=== PATIENT | female | born 1955 | race Caucasian/White ===

== ENCOUNTER 2018-12-27 08:02 | Day surgery (SDC) | payer BC ==
[2018-12-23 10:43] VITALS: BMI 29.2
[~2018-12-27 08:02] MED LIST: LACTATED RINGERS 1,000 ML IV SCH
[2018-12-27 08:28] VITALS: RESP 16; TEMP 98.2
[2018-12-27] MEDS ORDERED: LIDOCAINE 1% 20 ML VIAL (10MG/ML) FOR IV START INTRADERMA ONE (08:43)
[2018-12-27] MEDS ORDERED: PROPOFOL 10 MG/ML 20 ML VIAL IV ONE (09:38)
--- NOTE | 2018-12-27 10:01 | P.PCN ---
Date of Procedure: 12/27/18 Procedure(s) Performed: Procedure: Total colonoscopy. Preoperative diagnosis: Screening for neoplasia. Postoperative diagnosis: Exam within normal limits. Preparation: HalfLytely prep. Sedation: Was provided by anesthesia. Brief clinical history: The patient is a 63-year-old female who is scheduled for this evaluation for screening for neoplasia age being her risk factor. Her mother had polyps but there is no family history of colon cancer. She has no abdominal complaints, bleeding or anemia. This would be her first colonoscopy. Procedure: With the patient on her left lateral decubitus position and after informed consent and adequate sedation, the perianal area was inspected and it did not show any fissures or fistulas. There were no masses felt on digital rectal examination. The Olympus CFH 190L video colonoscope was then inserted in the rectum in the usual fashion and advanced to the cecum. The mucosa appeared healthy. No polyps or tumors were seen or any obvious diverticular disease or other pathology. I retroflexed the endoscope in the rectum before the endoscope was withdrawn. The patient tolerated the procedure well. Plan: The patient was reassured. She will follow-up with you as planned and I recommended repeat exam in 10 years.
[2018-12-27 10:16] VITALS: BP 127/66; PULSE 77
== END 2018-12-27 10:37 | disposition home or self-care (01) ==
LOC: ORWHC2ENDO 08:02
DX: Z12.11 Encounter for screening for malignant neoplasm of colon (principal); Z83.71 Family history of colonic polyps; I25.10 Atherosclerotic heart disease of native coronary artery without angina pectoris; I10 Essential (primary) hypertension; E78.5 Hyperlipidemia, unspecified; K21.9 Gastro-esophageal reflux disease without esophagitis; Z98.61 Coronary angioplasty status; Z79.899 Other long term (current) drug therapy; Z88.0 Allergy status to penicillin
CPT/HCPCS: J2704; G0121

== ENCOUNTER → 2019-02-14 | Outpatient (CLI) | payer BC ==
--- NOTE | 2019-02-15 11:56 | MM ---
Reason for exam: screening (asymptomatic). Last mammogram was performed 1 year and 1 month ago. History: Patient is postmenopausal. Family history of breast cancer in mother at age 70. Took hormonal contraceptives for 5 years. Took estrogen for 4 years. Physical Findings: A clinical breast exam by your physician is recommended on an annual basis and results should be correlated with mammographic findings. MG 3D Screening Mammo W/Cad Bilateral CC and MLO view(s) were taken. Prior study comparison: January 24, 2018, mammogram, performed at [facility]. July 28, 2016, mammogram, performed at [facility]. The breast tissue is heterogeneously dense. This may lower the sensitivity of mammography. There are benign appearing round dystrophic calcifications bilaterally. There is no discrete abnormality. ASSESSMENT: Benign, BI-RAD 2 RECOMMENDATION: Routine screening mammogram of both breasts in 1 year.
== END ==
LOC: RADMAMWWP 09:20
PROVIDERS: ATTEND Internal Medicine
DX: Z12.31 Encounter for screening mammogram for malignant neoplasm of breast (principal); Z80.3 Family history of malignant neoplasm of breast
CPT/HCPCS: 77063; 77067

== ENCOUNTER 2021-08-26 12:41 | Emergency (ER) | payer BC, MEDICARE ==
--- NOTE | 2021-08-26 14:29 | XR ---
EXAMINATION TYPE: XR chest 2V DATE OF EXAM: 08/26/2021 COMPARISON: NONE HISTORY: Cough, shortness of breath and chest congestion TECHNIQUE: Frontal and lateral views of the chest are obtained. FINDINGS: Patchy bilateral airspace disease is present peripherally at the lung bases. No evident pn eumothorax or pleural effusion. Cardiac mediastinal silhouette is within normal limits. There are ove rlying artifacts. Aorta is dense. Prominent lung volume could be indicative of underlying COPD. There is a spinal curvature. Arthropathy noted within the shoulders. IMPRESSION: Correlate for pneumonia. Consider covid infection. Follow-up is recommended. Additional findings above.
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
[2021-08-26] MEDS ORDERED: ACETAMINOPHEN TAB 500 MG TAB PO STA (16:00)
[2021-08-26] MEDS ORDERED: IBUPROFEN 400 MG TAB PO STA (16:00)
[2021-08-26 16:09] VITALS: BP 104/61; PULSE 101; RESP 20; TEMP 102.6
== END 2021-08-26 16:09 | disposition home or self-care (01) ==
LOC: EC 12:41
DX: U07.1 COVID-19 (principal); I10 Essential (primary) hypertension; Z88.0 Allergy status to penicillin; Z79.899 Other long term (current) drug therapy
CPT/HCPCS: 71046; 87635; 99284

== ENCOUNTER → 2022-10-01 | Outpatient (CLI) | payer MEDICARE ==
--- NOTE | 2022-10-01 14:25 | MM ---
Reason for Exam: Clinical finding. Last mammogram was performed 1 year(s) and 1 month(s) ago. Indicated Problems: Skin changes to breast of the left side. Patient History: Menarche at age 10. First Full-Term at age 23. Postmenopausal. Patient used Estrogen for 4 years. Patient used Hormonal Contraceptives for 5 years. Mother had breast cancer, age 70. Risk Values: Kaila 5 year model risk: 3.6%. NCI Lifetime model risk: 11.3%. Prior Study Comparison: 07/28/2016 Screening Mammogram, [facility]. 01/24/2018 Screening Mammogram, [facility]. 02/14/2019 Bilateral Screening Mammogram, [facility]. 09/16/2021 Bilateral MG 3D screening mammo w/cad, [facility]. Tissue Density: The breast tissue is heterogeneously dense. This may lower the sensitivity of mammography. Findings: Analyzed By CAD. Pattern appears stable. There is greater parenchymal tissue on the right compared to the left. This is unchanged. No abnormality of the right periareolar region is evident on the current examination. No suspicious spiculated or lobular masses, cluster microcalcifications, architectural distortion, or other secondary signs of malignancy are radiographically apparent. Benign calcifications are present bilaterally. Overall Assessment: Benign, BI-RAD 2 Management: Screening Mammogram of both breasts in 1 year. A clinical breast exam by your physician is recommended on an annual basis and results should be correlated with mammographic findings. This exam should not preclude additional follow-up of suspicious palpable abnormalities. Results were given to the patient verbally at the time of exam. Electronically signed and approved by: Timothy Starkey D.O. Radiologis
== END | disposition home or self-care (01) ==
LOC: RADMAMWWP 13:37
PROVIDERS: ATTEND Family Medicine
DX: N63.10 Unspecified lump in the right breast, unspecified quadrant (principal); N63.20 Unspecified lump in the left breast, unspecified quadrant; Z78.0 Asymptomatic menopausal state; Z80.3 Family history of malignant neoplasm of breast
CPT/HCPCS: 77066; G0279; 77062

== ENCOUNTER → 2023-10-07 | Outpatient (CLI) | payer MEDICARE ==
--- NOTE | 2023-10-13 12:33 | MM ---
Reason for Exam: Screening (asymptomatic). Last screening mammogram was performed 12 month(s) ago. Patient History: Menarche at age 10. First Full-Term at age 23. Postmenopausal. Patient used Estrogen for 4 years. Patient used Hormonal Contraceptives for 5 years. Mother had breast cancer, age 70. Risk Values: Kaila 5 year model risk: 3.6%. NCI Lifetime model risk: 10.9%. Prior Study Comparison: 01/24/2018 Screening Mammogram, [facility]. 02/14/2019 Bilateral Screening Mammogram, [facility]. 09/16/2021 Bilateral MG 3D screening mammo w/cad, [facility]. 10/01/2022 Bilateral MG 3D diag mammo w/cad [facility], [facility]. Tissue Density: There are scattered fibroglandular densities. Findings: Analyzed By CAD. There is no suspicious group of microcalcifications or new suspicious mass. Benign-appearing calcifications bilaterally. Overall Assessment: Benign, BI-RAD 2 Management: Screening Mammogram of both breasts in [address] [facility] will attempt to contact patient to return for supplemental views and ultrasound if indicated. Patient should continue monthly self-breast exams. A clinical breast exam by your physician is recommended on an annual basis. This exam should not preclude additional follow-up of suspicious palpable abnormalities. Note on Kaila scores and lifetime risk: 1. A Kaila score greater than 3% is considered moderate risk. If this is the case, consider specialist referral to assess eligibility for a risk reducing agent. 2. If overall lifetime risk for the development of breast cancer is 20% or higher, the patient may qualify for future screening with alternating mammogram and breast MRI. Electronically signed and approved by: Dwight Lewis DO
== END | disposition home or self-care (01) ==
LOC: RADMAMWWP 08:05
PROVIDERS: ATTEND Family Medicine
DX: Z12.31 Encounter for screening mammogram for malignant neoplasm of breast (principal); Z80.3 Family history of malignant neoplasm of breast; Z78.0 Asymptomatic menopausal state
CPT/HCPCS: 77063; 77067

== ENCOUNTER → 2024-10-12 | Outpatient (CLI) | payer MEDICARE ==
--- NOTE | 2024-10-16 17:26 | MM ---
Reason for Exam: Screening (asymptomatic). Last screening mammogram was performed 12 month(s) ago. Patient History: Menarche at age 10. First Full-Term at age 23. Postmenopausal. Patient used Estrogen for 4 years. Patient used Hormonal Contraceptives for 5 years. Mother had breast cancer, age 70. Risk Values: Kaila 5 year model risk: 3.6%. NCI Lifetime model risk: 10.4%. Prior Study Comparison: 09/16/2021 Bilateral MG 3D screening mammo w/cad, [facility]. 10/01/2022 Bilateral MG 3D diag mammo w/cad [facility], [facility]. 10/07/2023 Bilateral MG 3D screening mammo w/cad, [facility]. Tissue Density: The breasts are heterogeneously dense, which may obscure small masses. Findings: Analyzed By CAD. Unchanged global asymmetry upper outer quadrant right breast. A few contain calcifications anterior left breast slightly increased but are typically benign. There is no suspicious group of microcalcifications or new suspicious mass in either breast. Overall Assessment: Benign, BI-RAD 2 Management: Screening Mammogram of both breasts in 1 year. See note below in regards to the patient's increased 5 year Kaila score. Patient should continue monthly self-breast exams. A clinical breast exam by your physician is recommended on an annual basis. This exam should not preclude additional follow-up of suspicious palpable abnormalities. Note on Kaila scores and lifetime risk: 1. A Kaila score greater than 3% is considered moderate risk. If this is the case, consider specialist referral to assess eligibility for a risk reducing agent. 2. If overall lifetime risk for the development of breast cancer is 20% or higher, the patient may qualify for future screening with alternating mammogram and breast MRI. [facility], , 10/16/2024 5:23 PM. Electronically signed and approved by: Lilli Calderon M.D. Radiologist
== END | disposition home or self-care (01) ==
LOC: RADMAMWWP 11:17
PROVIDERS: ATTEND Internal Medicine
DX: Z12.31 Encounter for screening mammogram for malignant neoplasm of breast (principal); Z78.0 Asymptomatic menopausal state; Z80.3 Family history of malignant neoplasm of breast; R92.333 Mammographic heterogeneous density, bilateral breasts
CPT/HCPCS: 77063; 77067

== ENCOUNTER 2024-12-22 10:35 | Day surgery (SDC) | payer MEDICARE ==
[2024-12-20 16:08] VITALS: BMI 25.6
[2024-12-22] MEDS: IV FLUID CONTINUATION 1,000 ML IV ONE (11:12)
[2024-12-22 11:16] VITALS: RESP 16; TEMP 97
[2024-12-22] MEDS: LACTATED RINGERS 1,000 ML IV SCH (11:21)
[2024-12-22] MEDS ORDERED: PROPOFOL 10 MG/ML 20 ML VIAL IV ONE (12:23)
[2024-12-22] MEDS ORDERED: LIDOCAINE 2% (PF) 20 MG/ML 5 ML VIAL ONE (12:23)
--- NOTE | 2024-12-22 12:34 | P.PCN ---
Date of Procedure: 12/22/24 Procedure(s) Performed: BRIEF HISTORY: Patient is a 69-year-old, pleasant, white female scheduled for an upper endoscopy as a part of evaluation of intermittent dysphagia to solids for the last several years duration.. PROCEDURE PERFORMED: Esophagogastroduodenoscopy with balloon dilation. PREOPERATIVE DIAGNOSIS: Intermittent dysphagia to solids. IV sedation per anesthesia. PROCEDURE: After informed consent was obtained, the patient was brought into the endoscopy unit. IV sedation was administered by Anesthesia under continuous monitoring. Initially the Olympus GIF-140 video endoscope was inserted into the mouth. Esophagus intubated without any difficulty. It was gradually advanced into the stomach and duodenum and carefully examined. The bulb and the second part of the duodenum appeared normal. The scope at this time was withdrawn to the stomach, adequately insufflated with air, and upon careful examination, mucosa of the antrum, body, cardia and the fundus appeared normal. The scope was then withdrawn into the esophagus. Small hiatal hernia noted. The GE junction was located at 39 cm from the incisors. There was a distal esophageal Schatzki's ring identified and this was dilated using 18 mm TTS TTS balloon for 30 seconds. Following the dilation there was some mucosal tear with oozing identified that spontaneously resolved. The rest of the esophagus appeared normal. There were no erosions or ulcerations seen and the patient tolerated the procedure well. IMPRESSION: 1. Distal esophageal Schatzki's ring status post balloon dilation using 18 mm TTS balloon. 2. Small hiatal hernia. RECOMMENDATIONS: The findings of this examination were discussed with the patient as well as her family. She was advised to be on a clear liquid diet. Follow-up in the office in 3 to 4 weeks.
[2024-12-22 12:52] VITALS: BP 93/62; PULSE 67
== END 2024-12-22 13:13 | disposition home or self-care (01) ==
LOC: ORWHC2ENDO 10:35
PROVIDERS: ATTEND Internal Medicine Gastroenterology
DX: K22.2 Esophageal obstruction (principal); K44.9 Diaphragmatic hernia without obstruction or gangrene
CPT/HCPCS: 43249; J2704; J2003; C1726